=== PATIENT | female | born 1955 | race Caucasian/White ===

== ENCOUNTER 2017-02-06 15:42 | Emergency (ER) | payer MEDICAID ==
[~2017-02-06] VITALS: Ht 160 cm; Wt 70.0 kg
[2017-02-06 16:00] VITALS: Ht 160 cm; Wt 70.0 kg
[2017-02-06] MEDS ORDERED: SOD CHLORIDE 0.9% 1,000 ML IV STA (21:02)
[2017-02-06] MEDS ORDERED: ONDANSETRON 4 MG INJ IV STA (21:02)
[2017-02-06] MEDS ORDERED: morphine 4 MG/ML VIAL IV STA (21:02)
[2017-02-06 21:09] LABS: ADD SCAN DIFF NO
[2017-02-06 21:12] LABS: BASOPHILS % 0.6 % (0.0-2.0); EOSINOPHILS # 0.1 10^3/ul (0.0-0.5); EOSINOPHILS % 2.9 % (0.0-7.0); HEMATOCRIT 39.3 % (37.0-47.0); HEMOGLOBIN 13.4 g/dl (12.0-16.0); LYMPHOCYTES # 1.6 10^3/ul (0.8-2.9); LYMPHOCYTES % 33.5 % (15.0-51.0); MEAN CORPUSCULAR HEMOGLOBIN 26.4 pg (29.0-33.0); MEAN CORPUSCULAR HGB CONC 34.1 g/dl (32.0-37.0); MEAN CORPUSCULAR VOLUME 77.4 fl (82.0-101.0); MONOCYTE # 0.4 10^3/ul (0.3-0.9); MONOCYTES % 7.7 % (0.0-11.0); NEUTROPHIL # 2.6 10^3/ul (1.6-7.5); NEUTROPHILS % 54.7 % (39.0-77.0); PLATELET COUNT 207 10^3/UL (140-415); RED BLOOD COUNT 5.08 10^6/ul (4.20-5.40); RED CELL DISTRIBUTION WIDTH 15.6 % (11.5-14.5); WHITE BLOOD COUNT 4.8 10^3/ul (4.8-10.8)
[2017-02-06 21:14] LABS: ALBUMIN 4.7 g/dl (3.3-4.9)
[2017-02-06 21:15] LABS: POTASSIUM 3.6 mmol/L (3.5-5.1)
[2017-02-06 21:17] LABS: ALBUMIN/GLOBULIN RATIO 0.94; BILIRUBIN,INDIRECT 0.6 mg/dl (0-1.1); BILIRUBIN,TOTAL 0.6 mg/dl (0.2-1.3); CREATININE 0.51 mg/dl (0.44-1.00); TOTAL PROTEIN 9.7 g/dl (6.1-8.1)
[2017-02-06] MEDS ORDERED: METF1000 PO (21:49)
[2017-02-06] MEDS ORDERED: NPH SQ (21:51)
--- NOTE | 2017-02-06 21:51 | RADRPT ---
PROCEDURE: US gallbladder . CLINICAL INDICATION: Abdominal pain. TECHNIQUE: Multiple real-time images were acquired of the patient's abdomen utilizing a high resol ution transducer. COMPARISON: None FINDINGS: No gallstones are identified within the gallbladder. There is no pericholecystic fluid or gallbladder wall thickening. Gallbladder wall measures 2 mm. The common bile duct measures 4 mm in maximal dimension. No free fluid is identified. Enlarged liver measures 196 mm. Increased echogenicity with the liver s uggests a degree of fatty infiltration. Right kidney measures 101 mm, and otherwise there is no paris dent renal mass, hydronephrosis or retained calculus. IMPRESSION: 1. Fatty infiltration of enlarged liver. 2. Otherwise, no acute process in the abdomen. RPTAT: UU Physician Raul Date Time Electronically viewed and signed by Physician Raul on 02/06/2017 21:51 RS/
[2017-02-06] MEDS ORDERED: IOHEXOL 300MG/ML 150 ML BTL ONE (22:24)
[2017-02-06] MEDS ORDERED: SOD CHLORIDE 0.9% 100 ML ONE (22:24)
[2017-02-06 22:30] VITALS: BP 147/67; PULSE 61; RESP 18
--- NOTE | 2017-02-06 23:14 | RADRPT ---
PROCEDURE: CT abdomen and pelvis with contrast CLINICAL INDICATION: Abdominal Pain TECHNIQUE: Continues axial CT images were obtained from the lower chest through the pubic symphysi s. Coronal and sagittal constructions were performed. Examination was performed after administrati on of 100 mL of Omnipaque-300 intravenous contrast. The calculated radiation dose measures 991 mGy centimeters. The CTDI measures 18 mGy. COMPARISON: None available FINDINGS: Limited images through the lung bases display mild dependent atelectasis. Abdomen: The liver appears normal in size and configuration. There are gallstones in the gallbladder.. There is no intrahepatic or extrahepatic biliary dilatation. The spleen is normal in size. The pancreas and adrenal glands appear unremarkable. The kidneys are normal in configuration. There is a left lower pole 8 mm probable renal cysts, and s cattered additional bilateral too small to characterize hypodensities. No renal calculus or hydrone phrosis is seen. There is scattered colonic diverticulosis, without visualized diverticulitis.. The appendix appears within normal limits. There is no retroperitoneal adenopathy or ascites. Pelvis: The urinary bladder appears unremarkable. Pelvic organs appear within normal limits. There is no a bnormal pelvic mass or adenopathy. There is no pelvic free fluid. Osseous structures of the abdomen and pelvis appear within normal limits. IMPRESSION: 1. Mild dependent lung atelectasis. 2. Gallstones in the gallbladder. 3. Scattered colonic diverticulosis, without visualized diverticulitis. 4. Scattered renal too small to characterize hypodensities, and probable left lower pole 8 mm renal cyst. RPTAT: HBST .Ovidio Correa MD, MD Date Time Electronically viewed and signed by .Ovidio Correa MD, MD on 02/06/2017 23:14 .T/
--- NOTE | 2017-02-07 00:06 | ERD ---
ER Documentation Chief Complaint Date/Time DATE: 02/06/17 TIME: 21:00 Chief Complaint RUQ PAIN; ON AND OFF FEVEER X 3 WEEKS HPI 61-year-old female with history of diabetes mellitus, hypertension and hepatitis C referred to the ED by her primary care physician for evaluation of a 3 week history of right upper quadrant pain. Patient states she has had approximately 1 month history of intermittent, sharp and crampy, nonradiating right upper quadrant pain with nausea but no vomiting or constipation. Intermittent, watery, nonbloody, nonmucoid diarrhea. No hematemesis or hematochezia. Denies chest pain or palpitations. No shortness of breath or cough. No dysuria, polyuria, hematuria or flank pain. No relieving or exacerbating factors. No fevers or chills. ROS All systems reviewed and are negative except as per history of present illness. Medications Home Meds Active Scripts Tramadol HCl (Tramadol HCl) 50 Mg Tablet, 50 MG PO Q6 Y for PAIN, #12 TAB Prov:ALFREDA LITTLE MD 02/07/17 Reported Medications Insulin Human Nph (Novolin-N) 100 Units/Ml Susp, 0 SQ BID TAKE 38 UNITS QAM AND 25 UNITS QHS 02/06/17 Metformin Hcl* (Metformin Hcl*) 1,000 Mg Tablet, 1000 MG PO WITH BREAKFAST DINNE , #60 TAB 02/06/17 Allergies Allergies: Coded Allergies: No Known Allergy (Unverified , 02/06/17) PMhx/Soc Reviewed in chart. As per HPI. History of Surgery: Yes (hysterectomy, hernia repair.) Anesthesia Reaction: No Hx Neurological Disorder: No Hx Respiratory Disorders: No Hx Cardiac Disorders: No Hx Psychiatric Problems: No Hx Miscellaneous Medical Probl: Yes (DM, HTN) Hx Alcohol Use: No Hx Substance Use: No Hx Tobacco Use: No Smoking Status: Current every day smoker FmHx No stroke or cancer Physical Exam Vitals Vital Signs Date Time Temp Pulse Resp B/P Pulse Ox O2 Delivery O2 Flow Rate FiO2 02/06/17 22:30 61 18 147/67 97 Room Air 02/06/17 16:00 98.4 70 19 150/100 100 Physical Exam Const: Alert, mild distress due to pain. Head: Atraumatic Eyes: Normal Conjunctiva ENT: Normal External Ears, Nose and Mouth. Neck: Full range of motion. Nontender Resp: Clear to auscultation bilaterally Cardio: Regular rate and rhythm, no murmurs Abd: Soft, mild to moderate right upper quadrant tenderness. No rebound or guarding. No right or left lower quadrant tenderness. No masses or abnormal pulsations. Skin: No petechiae or rashes Back: No midline or flank tenderness Ext: No cyanosis, or edema Neur: Awake and alert. No focal deficit observed. Psych: Normal Mood and Affect Result Diagram: 02/06/17205402/06/172054 Results 24 hrs Laboratory Tests Test 02/06/17 20:55 White Blood Count 4.810^3/ul Red Blood Count 5.0810^6/ul Hemoglobin 13.4g/dl Hematocrit 39.3% Mean Corpuscular Volume 77.4fl Mean Corpuscular Hemoglobin 26.4pg Mean Corpuscular Hemoglobin Concent 34.1g/dl Red Cell Distribution Width 15.6% Platelet Count 30201^3/UL Mean Platelet Volume 11.0fl Neutrophils % 54.7% Lymphocytes % 33.5% Monocytes % 7.7% Eosinophils % 2.9% Basophils % 0.6% Nucleated Red Blood Cells % 0.0/100WBC Neutrophils # 2.610^3/ul Lymphocytes # 1.610^3/ul Monocytes # 0.410^3/ul Eosinophils # 0.110^3/ul Basophils # 0.010^3/ul Nucleated Red Blood Cells # 0.010^3/ul Sodium Level 148mmol/L Potassium Level 3.6mmol/L Chloride Level 99mmol/L Carbon Dioxide Level 31mmol/L Anion Gap 22 Blood Urea Nitrogen 8mg/dl Creatinine 0.51mg/dl Glucose Level 94mg/dl Calcium Level 10.0mg/dl Total Bilirubin 0.6mg/dl Direct Bilirubin 0.00mg/dl Indirect Bilirubin 0.6mg/dl Aspartate Amino Transf (AST/SGOT) 400IU/L Alanine Aminotransferase (ALT/SGPT) 395IU/L Alkaline Phosphatase 84IU/L Total Protein 9.7g/dl Albumin 4.7g/dl Globulin 5.00g/dl Albumin/Globulin Ratio 0.94 Lipase 224U/L Current Medications Medications (Trade) Dose Ordered Sig/Cecy Route PRN Reason Start Time Stop Time Status Last Admin Dose Admin Sodium Chloride (NS) 1,000 ml @ 1,000 mls/hr Q1H STAT IV 02/06/17 21:02 02/06/17 22:01 DC 02/06/17 21:21 Morphine Sulfate (morphine) 4 mg ONCE STAT IV 02/06/17 21:02 02/06/17 21:05 DC 02/06/17 21:26 Ondansetron HCl (Zofran Inj) 4 mg ONCE STAT IV 02/06/17 21:02 02/06/17 21:05 DC 02/06/17 21:26 IV Flush 10 ml 10 ml STK-MED ONCE .ROUTE 02/06/17 22:24 02/06/17 22:25 DC 02/06/17 22:41 Sodium Chloride (NS) 100 ml @ ud STK-MED ONCE .ROUTE 02/06/17 22:24 02/06/17 22:25 DC 02/06/17 22:41 Iohexol (Omnipaque 300mg/ ml) 150 ml STK-MED ONCE .ROUTE 02/06/17 22:24 02/06/17 22:25 DC 02/06/17 22:41 PROCEDURE: US gallbladder . CLINICAL INDICATION: Abdominal pain. TECHNIQUE: Multiple real-time images were acquired of the patient's abdomen utilizing a high resolution transducer. COMPARISON: None FINDINGS: No gallstones are identified within the gallbladder. There is no pericholecystic fluid or gallbladder wall thickening. Gallbladder wall measures 2 mm. The common bile duct measures 4 mm in maximal dimension. No free fluid is identified. Enlarged liver measures 196 mm. Increased echogenicity with the liver suggests a degree of fatty infiltration. Right kidney measures 101 mm, and otherwise there is no evident renal mass, hydronephrosis or retained calculus. IMPRESSION: 1. Fatty infiltration of enlarged liver. 2. Otherwise, no acute process in the abdomen. RPTAT: UU Physician Raul Date Time Electronically viewed and signed by Physician Raul on 02/06/2017 21:51 RS/ PROCEDURE: CT abdomen and pelvis with contrast CLINICAL INDICATION: Abdominal Pain TECHNIQUE: Continues axial CT images were obtained from the lower chest through the pubic symphysis. Coronal and sagittal constructions were performed. Examination was performed after administration of 100 mL of Omnipaque-300 intravenous contrast. The calculated radiation dose measures 991 mGy centimeters. The CTDI measures 18 mGy. COMPARISON: None available FINDINGS: Limited images through the lung bases display mild dependent atelectasis. Abdomen: The liver appears normal in size and configuration. There are gallstones in the gallbladder.. There is no intrahepatic or extrahepatic biliary dilatation. The spleen is normal in size. The pancreas and adrenal glands appear unremarkable. The kidneys are normal in configuration. There is a left lower pole 8 mm probable renal cysts, and scattered additional bilateral too small to characterize hypodensities. No renal calculus or hydronephrosis is seen. There is scattered colonic diverticulosis, without visualized diverticulitis.. The appendix appears within normal limits. There is no retroperitoneal adenopathy or ascites. Pelvis: The urinary bladder appears unremarkable. Pelvic organs appear within normal limits. There is no abnormal pelvic mass or adenopathy. There is no pelvic free fluid. Osseous structures of the abdomen and pelvis appear within normal limits. IMPRESSION: 1. Mild dependent lung atelectasis. 2. Gallstones in the gallbladder. 3. Scattered colonic diverticulosis, without visualized diverticulitis. 4. Scattered renal too small to characterize hypodensities, and probable left lower pole 8 mm renal cyst. RPTAT: HBST .Ovidio Correa MD, MD Date Time Electronically viewed and signed by .Ovidio Correa MD, MD on 02/06/2017 23:14 .T/ Procedures/MDM DOCUMENTS REVIEWED: ED nurse, clinic note. ED COURSE: Normal saline 1 L. Morphine 4mg/Zofran 4mg REEXAMINATION/REEVALUATION: Time:23:50. Doing well. Pain resolved. Abdomen soft nontender. MEDICAL DECISION MAKIN-year-old female with history of diabetes mellitus, hypertension and hepatitis C referred to the ED by her primary care physician for evaluation of a 3 week history of right upper quadrant pain. Ultrasound is negative for cholelithiasis or cholecystitis but CT was positive for cholelithiasis. Possible biliary colic. No evidence of other intra-abdominal process including appendicitis, diverticulitis, bowel obstruction, mesenteric ischemia or ureterolithiasis. Transaminitis but no hyperbilirubinemia. Doubt cholangitis. No skin changes or signs of herpes zoster infection. Abdomen is soft without rebound, guarding or signs of peritonitis. No pancreatitis. Pain resolved with intravenous hydration, analgesics and antiemetics. Counseled patient regarding diagnostic workup, diagnosis and need for followup. Understands to return to ED if symptoms recur, worsen or any other concerns. F/ U with PMD tomorrow. Departure Diagnosis: Primary Impression: Right upper quadrant abdominal pain Additional Impressions: Transaminitis Diabetes mellitus type 2 in obese Abdominal pain of unknown etiology Condition: Stable ALFREDA LITTLE MD Feb 07, 2017 00:06
[2017-02-07] MEDS ORDERED: TRAM50TA2 PO (00:28)
== END 2017-02-07 00:39 | disposition home or self-care (01) ==
LOC: E/R 15:42
DX: R10.11 Right upper quadrant pain (principal); R74.0 Nonspecific elevation of levels of transaminase and lactic acid dehydrogenase [LDH]; E11.9 Type 2 diabetes mellitus without complications; F17.210 Nicotine dependence, cigarettes, uncomplicated; R11.0 Nausea; I10 Essential (primary) hypertension; Z79.4 Long term (current) use of insulin; Z79.84 Long term (current) use of oral hypoglycemic drugs
CPT/HCPCS: 36415; 74177; 76705; 80053; 83690; 85025; 96361; 96374; 96375; J2270; J2405; J7030; Q9967; Z7502; Z7610

== ENCOUNTER 2017-08-21 13:42 | Day surgery (SDC) | payer MEDICAID, OTHER ==
[~2017-08-21] VITALS: Ht 160 cm; Wt 78.1 kg
[~2017-08-21 13:42] MED LIST: METF1000 PO; NPH SQ; TRAM50TA2 PO
[2017-08-21 14:30] VITALS: Ht 160 cm; Wt 78.1 kg
[2017-08-21] MEDS ORDERED: NITR25OR2 PO (14:59)
[2017-08-21] MEDS ORDERED: IMO2 PO (14:59)
[2017-08-21] MEDS ORDERED: OMEP20CA16 PO (14:59)
[2017-08-21] MEDS ORDERED: LIRA0.6P SQ (14:59)
[2017-08-21] MEDS ORDERED: CALC-143 PO (14:59)
--- NOTE | 2017-08-21 15:50 | OPPN ---
Date/Time of Note Date/Time of Note DATE: 08/21/17 TIME: 15:48 Operative Report Preoperative Diagnosis Abdominal pain Chronic diarrhea Postoperative Diagnosis Hiatal hernia Gastroesophageal reflux disease Gastritis Operation/Procedure Performed Esophagogastroduodenoscopy and biopsy Colonoscopy and biopsy Surgeon see signature line office assistant receptionist None Anesthesia: moderate sedation Estimated blood loss: none Transfusion Required none Specimen Gastric biopsy Small bowel biopsy Random colon biopsy Grafts/Implants none Complications none LISA STOCK MD Aug 21, 2017 15:50
[2017-08-21] MEDS ORDERED: MIDAZOLAM 1 MG/ML 2 ML INJ ONE ×3 (16:14)
[2017-08-21] MEDS ORDERED: FENTAnyl 50 MCG/ML VIAL ONE (16:14)
--- NOTE | 2017-08-21 18:24 | GILP ---
DATE OF PROCEDURE: 08/21/2017 PROCEDURE PERFORMED: 1. Esophagogastroduodenoscopy and biopsy. 2. Colonoscopy and biopsy. SURGEON: Rupa Garcia MD PREOPERATIVE DIAGNOSIS: 1. Abdominal pain. 2. Chronic diarrhea. POSTOPERATIVE DIAGNOSES: 1. Hiatal hernia. 2. Gastroesophageal reflux disease. 3. Gastritis with erosions. 4. Gastric mucosal biopsies were taken for Helicobacter pylori test. 5. Small bowel biopsies were taken to rule out celiac disease. 6. Colonoscopy all the way to the cecum. 7. Diverticulosis of the right colon. 8. Internal hemorrhoids. 9. Random biopsies were taken to rule out microscopic colitis. INDICATION: Ms. Jyoti Keen is a 62-year-old female patient who had upper abdominal pain and chronic heartburn not responding to therapy. She also had chronic diarrhea. The patient was scheduled for endoscopy and colonoscopy for further evaluation. The procedures and possible complications were well explained to the patient. The patient understood and consented to the procedure. DESCRIPTION OF PROCEDURE: Under influence of fentanyl and Versed, the gastroscope was carefully introduced into the esophagus. Under direct vision, it was advanced to the stomach, into the pylorus, into the duodenal bulb, and descending duodenum. Findings: Esophagus: Patient had hiatal hernia and gastroesophageal reflux disease. Stomach: She had gastritis with erosions. Gastric mucosal biopsies were taken for H. pylori test. Duodenum was normal. Small bowel biopsies were taken to rule out celiac disease. The colonoscope was carefully introduced in the rectum. Under direct vision, it was advanced all the way to the cecum. Findings: Patient had mild diverticulosis of the right colon. The colonic mucosa was normal. Random biopsies were taken to rule out microscopic colitis. Patient was noted to have internal hemorrhoids. She tolerated the procedures very well and there was no complication from the procedures. At the end of procedure, she was awake with stable vital signs, and she was discharged home in the care of her family. IMPRESSION: Please see postoperative diagnoses. PLAN: 1. Continue omeprazole. 2. Add Zantac 300 mg p.o. at bedtime. 3. Bentyl 10 mg p.o. t.i.d. before meals. 4. Imodium p.r.n. for diarrhea. 5. Await histopathology reports. 6. Next screening colonoscopy in 10 years. Dictated By: MD LAUREN Bucio/panfilo/[email or web address] /Document#: [id number]
== END 2017-08-21 16:03 | disposition home or self-care (01) ==
LOC: GIL 13:42
PROVIDERS: ATTEND Internal Medicine Gastroenterology
DX: K44.9 Diaphragmatic hernia without obstruction or gangrene (principal); K21.9 Gastro-esophageal reflux disease without esophagitis; K29.70 Gastritis, unspecified, without bleeding; K64.8 Other hemorrhoids; K57.30 Diverticulosis of large intestine without perforation or abscess without bleeding
CPT/HCPCS: 43239; 45380; 82962; 87081; 88305; J2250; J3010; Z7610

== ENCOUNTER 2017-09-10 13:07 | Inpatient (IN) | payer OTHER ==
[~2017-09-10] VITALS: Ht 165.1 cm; Wt 78.0 kg
[~2017-09-10 13:07] MED LIST changes: +CALC-143 PO; +IMO2 PO; +LIRA0.6P SQ; -METF1000 PO; +NITR25OR2 PO; +OMEP20CA16 PO
[2017-09-10 13:12] VITALS: Ht 165.1 cm; Wt 78.0 kg
--- NOTE | 2017-09-10 17:20 | ERD ---
ER Documentation Chief Complaint Chief Complaint CP X 5DAYS SENT BY [facility]I [facility]LE[facility] The patient is a 62-year-old female, presenting to the ER from a mental health clinic because she has had left-sided chest pain radiating down to the left intermittently for the last 5 days. She was given aspirin 325 mg at the mental health clinic before transfer. The pain is worse with movement, she denies similar symptoms previously, denies chest pain with exertion/vomiting// diaphoresis, dyspnea, abdominal pain, vomiting, dysuria, diarrhea. She does not smoke nor drink Past medical history: Diabetes mellitus, hepatitis C, HIV, chronic diarrhea, GERD Past surgical history: Hysterectomy, umbilical herniorrhaphy ROS All systems reviewed and are negative except as per history of present illness. Medications Home Meds Active Scripts Tramadol HCl (Tramadol HCl) 50 Mg Tablet, 50 MG PO Q6 Y for PAIN, #12 TAB Prov:ALFREDA LITTLE MD 02/07/17 Reported Medications Omeprazole* (Omeprazole*) 20 Mg Capsule.dr, 20 MG PO DAILY, #30 CAP 08/21/17 Liraglutide (Victoza 2-Janes) 0.6 Mg/0.1 Ml Pen.injctr, 0.6 MG SQ DAILY, SYR 08/21/17 Loperamide Hcl* (Loperamide Hcl*) 2 Mg Cap, 2 MG PO, CAP 08/21/17 Nitrofurantoin* (Furadantin* Susp) 25 Mg/5 Ml Oral.susp, 100 MG PO BID, ML 08/21/17 Calcium Citrate/Vitamin D (Citracal-Vitamin D 200 MG-250) 1 Each Tablet, 1 EACH PO BID, TAB 08/21/17 Insulin Human Nph (Novolin-N) 100 Units/Ml Susp, 0 SQ BID TAKE 38 UNITS QAM AND 25 UNITS QHS 02/06/17 Allergies Allergies: Coded Allergies: No Known Allergy (Unverified , 02/06/17) PMhx/Soc History of Surgery: Yes (HYSTERECTOMY, UMBILICAL HERNIA) Anesthesia Reaction: No Hx Neurological Disorder: No Hx Respiratory Disorders: No Hx Cardiac Disorders: No Hx Psychiatric Problems: No Hx Miscellaneous Medical Probl: No (HEP C, HIV, TYPE 1 DM) Hx Alcohol Use: No Hx Substance Use: No Hx Tobacco Use: No Physical Exam Vitals Vital Signs Date Time Temp Pulse Resp B/P Pulse Ox O2 Delivery O2 Flow Rate FiO2 09/10/17 13:12 97.1 66 18 136/75 99 Physical Exam Const: No acute distress. Head: Atraumatic. Eyes: Normal Conjunctiva. ENT: Normal External Ears, Nose and Mouth. Neck: Full range of motion. No meningismus. Resp: Clear to auscultation bilaterally. Cardio: Regular rate and rhythm. Abd: Soft, non distended, normal bowel sounds, non tender. Skin: No petechiae or rashes. Back: No midline or flank tenderness. Ext: No cyanosis, or edema. Neur: Awake and alert. No focal deficit Psych: Normal Mood and Affect. Result Diagram: 09/10/17 1750 09/10/171749 Results 24 hrs Laboratory Tests Test 09/10/17 17:50 White Blood Count 5.710^3/ul Red Blood Count 4.5810^6/ul Hemoglobin 13.1g/dl Hematocrit 38.1% Mean Corpuscular Volume 83.2fl Mean Corpuscular Hemoglobin 28.6pg Mean Corpuscular Hemoglobin Concent 34.4g/dl Red Cell Distribution Width 14.7% Platelet Count 55516^3/UL Mean Platelet Volume 11.0fl Neutrophils % 50.8% Lymphocytes % 40.2% Monocytes % 5.3% Eosinophils % 2.8% Basophils % 0.5% Nucleated Red Blood Cells % 0.0/100WBC Neutrophils # 2.910^3/ul Lymphocytes # 2.310^3/ul Monocytes # 0.310^3/ul Eosinophils # 0.210^3/ul Basophils # 0.010^3/ul Nucleated Red Blood Cells # 0.010^3/ul Sodium Level 144mmol/L Potassium Level 4.0mmol/L Chloride Level 103mmol/L Carbon Dioxide Level 28mmol/L Anion Gap 17 Blood Urea Nitrogen 9mg/dl Creatinine 0.65mg/dl Glucose Level 94mg/dl Calcium Level 9.6mg/dl Creatine Kinase 53IU/L Creatine Kinase Index 0.5 Creatinine Kinase MB (Mass) 0.28ng/ml Troponin I < 0.012ng/ml Current Medications Medications (Trade) Dose Ordered Sig/Cecy Route PRN Reason Start Time Stop Time Status Last Admin Dose Admin Nitroglycerin (Nitroglycerin 2% Oint) 1 inch ONCE ONCE TD 09/10/17 18:00 10/23/17 18:01 DC 09/10/17 18:03 Procedures/MDM [place] [id number] Radiology Main Line: [phone] DIAGNOSTIC IMAGING REPORT Patient: DEO SILVA : 1955 Age: 62 Sex: F MR #: [id number] DOS: 09/10/17 1707 Ordering MD: TRIPP CORADO MD Location: E/R Room/Bed: PROCEDURE: XR Chest. CLINICAL INDICATION: Chest pain TECHNIQUE: Single frontal view of the chest. COMPARISON: None. FINDINGS: The cardiomediastinal silhouette is within normal limits. The lungs are clear. No signs of pleural fluid or pneumothorax are seen. The osseous structures and soft tissues are unremarkable. IMPRESSION: No evidence for active cardiopulmonary disease. RPTAT: UU Physician Raul Date Time Electronically viewed and signed by Physician Raul on 09/10/2017 18:55 RS/ CC: TRIPP CORADO MD EKG: Read by emergency physician Rate/Rhythm: Normal Sinus Rhythm 60 beats/min QRS, ST, T-waves: No ST elevation, no T inversion Impression: Normal EKG MEDICAL MAKING DECISION: The patient is a 62-year-old female, presenting to the ER because of acute chest pain of unclear etiology, concerning for acute ACS. She was treated with aspirin 325 mg p.o. at the clinic, she was treated with nitroglycerin 1 inch to the chest wall with good response The differential diagnoses considered include but are not limited to acute coronary syndrome, acute myocardial infarction, pericarditis, pulmonary embolism , aortic dissection, pneumonia, pleural effusion, pneumothorax, GERD, chest wall pain. Departure Diagnosis: Primary Impression: Chest pain Condition: Stable Comments I discussed the findings with the patient. I discussed the patient with the on- call hospitalist Jaziel 7 PM. who was made aware of the lab, the treatment, the patient condition. The patient is admitted to telemetry The patient's blood pressure was elevated (>120/80) but appears stable without evidence of hypertension emergency or urgency. The patient was counseled about the risks of hypertension and urged to pursue outpatient monitoring and therapy within a week with their primary care physician. TRIPP CORADO MD Sep 10, 2017 17:20
[2017-09-10] MEDS ORDERED: NITROGLYCERIN 2% 1 GM OINT PKT TD ONE (18:00)
[2017-09-10 18:10] LABS: BASOPHILS % 0.5 % (0.0-2.0); EOSINOPHILS # 0.2 10^3/ul (0.0-0.5); EOSINOPHILS % 2.8 % (0.0-7.0); HEMATOCRIT 38.1 % (37.0-47.0); HEMOGLOBIN 13.1 g/dl (12.0-16.0); LYMPHOCYTES # 2.3 10^3/ul (0.8-2.9); LYMPHOCYTES % 40.2 % (15.0-51.0); MEAN CORPUSCULAR HEMOGLOBIN 28.6 pg (29.0-33.0); MEAN CORPUSCULAR HGB CONC 34.4 g/dl (32.0-37.0); MEAN CORPUSCULAR VOLUME 83.2 fl (82.0-101.0); MONOCYTE # 0.3 10^3/ul (0.3-0.9); MONOCYTES % 5.3 % (0.0-11.0); NEUTROPHIL # 2.9 10^3/ul (1.6-7.5); NEUTROPHILS % 50.8 % (39.0-77.0); PLATELET COUNT 192 10^3/UL (140-415); RED BLOOD COUNT 4.58 10^6/ul (4.20-5.40); RED CELL DISTRIBUTION WIDTH 14.7 % (11.5-14.5); WHITE BLOOD COUNT 5.7 10^3/ul (4.8-10.8)
[2017-09-10 18:26] LABS: ANION GAP 17 (8-16); BLOOD UREA NITROGEN 9 mg/dl (7-20); CALCIUM 9.6 mg/dl (8.4-10.2); CARBON DIOXIDE 28 mmol/L (21-31); CHLORIDE 103 mmol/L (97-110); CREATINE KINASE 53 IU/L (23-200); CREATININE 0.65 mg/dl (0.44-1.00); GLUCOSE 94 mg/dl (70-220); SODIUM 144 mmol/L (135-144)
[2017-09-10 18:38] LABS: CK-MB 0.28 ng/ml (0.0-2.4)
[2017-09-10 18:40] LABS: TROPONIN-I < 0.012 ng/ml (0.00-0.12)
--- NOTE | 2017-09-10 18:56 | RADRPT ---
PROCEDURE: XR Chest. CLINICAL INDICATION: Chest pain TECHNIQUE: Single frontal view of the chest. COMPARISON: None. FINDINGS: The cardiomediastinal silhouette is within normal limits. The lungs are clear. No signs of pleural f luid or pneumothorax are seen. The osseous structures and soft tissues are unremarkable. IMPRESSION: No evidence for active cardiopulmonary disease. RPTAT: UU Physician Raul Date Time Electronically viewed and signed by Physician Raul on 09/10/2017 18:55 RS/
[2017-09-10] MEDS ORDERED: NITROGLYCERIN (SL) 0.4 MG TAB SL PRN (23:00)
[2017-09-10] MEDS ORDERED: morphine 2 MG INJ IV PRN (23:00)
[2017-09-10] MEDS ORDERED: NACL 0.9% 3 ML SYG IV SCH (23:00)
[2017-09-10] MEDS ORDERED: ONDANSETRON 4 MG INJ IV PRN (23:00)
[2017-09-10] MEDS ORDERED: ALBUTEROL/IPRATROPIUM (NEB) 3 ML AMP HHN PRN (23:00)
[2017-09-10] MEDS ORDERED: LORAZEPAM 0.5 MG TAB PO PRN (23:00)
[2017-09-10] MEDS ORDERED: ACETAMINOPHEN 325 MG TAB PO PRN (23:00)
[2017-09-10 23:14] VITALS: BP 112/71; RESP 20
[2017-09-10] MEDS ORDERED: GLUCAGON 1 MG INJ IM PRN (23:30)
[2017-09-10] MEDS ORDERED: DEXTROSE 50% 50 ML SYRINGE IV PRN ×2 (23:30)
[2017-09-10] MEDS ORDERED: GLUCOSE GEL 15 GRAM TUBE PO PRN ×2 (23:30)
[2017-09-10] MEDS ORDERED: GLUCOSE GEL 15 GRAM TUBE BUCCAL PRN (23:30)
[2017-09-11] VITALS (11 sets, daily range): BP systolic 114–129; BP diastolic 67–75; PULSE 62–75; RESP 17–20
[2017-09-11] MEDS: ACCU-CHEK XX SCH (02:00)
[2017-09-11] MEDS: PANTOPRAZOLE (EC) 40 MG TAB PO SCH (06:30)
--- NOTE | 2017-09-11 07:07 | HP ---
Date/Time of Note Date/Time of Note DATE: 09/11/17 TIME: 06:58 Assessment/Plan VTE Prophylaxis VTE Prophylaxis Intervention: heparin Lines/Catheters IV Catheter Type (from [facility]): [place] Urinary Cath still in place: No Assessment/Plan Assessment/Plan ASSESSMENT 62-year-old female with a history of insulin-dependent diabetes, hep C, HIV, chronic diarrhea, gastritis/GERD who was brought to the ER from psych facility for chest pain, likely stress related PLAN -Chest pain likely stress related, however need to rule out ACS -Continue telemetry monitoring -Aspirin, beta-gagandeep, with as needed nitro morphine. Continue supplemental oxygen -Obtain 2D echo -cardiology consult as needed -Check A1c, fasting lipid, TSH -Insulin while in-house for diabetes HPI/ROS Admit Date/Time Admit Date/Time Sep 10, 2017 at 19:43 Hx of Present Illness This is a 62-year-old female with a history of insulin-dependent diabetes, hepatitis C, HIV, chronic diarrhea, gastritis who was brought to the emergency department from a mental health clinic for chest pain. Pain started about a week ago and is mainly left-sided, with radiation to left arm. Denied shortness of breath, diaphoresis, nausea/vomiting. When presented to the ER, vitals were stable. EKG with normal sinus rhythm with no ST-T wave abnormalities. Troponin 2 negative. Basic labs within acceptable range. Chest x-ray with no active cardiopulmonary disease. . PMH/Family/Social Social History Smoking Status: Never smoker Exam/Review of Systems Vital Signs Vitals Vital Signs Date Time Temp Pulse Resp B/P Pulse Ox O2 Delivery O2 Flow Rate FiO2 09/11/17 04:10 64 09/11/17 04:02 98.1 20 114/68 98 Intake and Output 09/10/17 09/10/17 09/11/17 14:59 22:59 06:59 Intake Total 300 ml Balance 300 ml Exam Constitutional: other (No acute distress) Head: atraumatic, normocephalic Eyes: EOMI, PERRL Respiratory: clear to auscultation, normal air movement Cardiovascular: nl pulses, regular rate and rhythm Gastrointestinal: non-tender, soft Extremities: normal pulses Labs Result Diagram: 09/10/17174909/10/171749 Medications Medications Current Medications Lorazepam (Ativan) 0.5 mg Q8H PRN PO ANXIETY; Start 09/10/17 at 23:00 Ondansetron HCl (Zofran Inj) 4 mg Q6H PRN IV NAUSEA AND/OR VOMITING; Start at 23:00 Aspirin (Aspirin) 81 mg DAILY PO ; Start 09/11/17 at 09:00 Nitroglycerin (Nitroglycerin (Sl Tab) 0.4 Mg) 1 tab Q5M PRN SL CHEST PAIN; Start 09/10/17 at 23:00 Acetaminophen (Tylenol Tab) 650 mg Q6H PRN PO PAIN LEVEL 1-3 OR FEVER; Start 09/10/17 at 23:00 Morphine Sulfate (morphine) 2 mg Q4H PRN IV PAIN LEVEL 7-10; Start 09/10/17 at 23:00 Enoxaparin Sodium (Lovenox) 40 mg DAILY SC ; Start 09/11/17 at 09:00 Diagnostic Test (Pha) (Accu-Chek) 1 ea 02 XX ; Start 09/11/17 at 02:00 Insulin Glargine (Lantus) 12 unit DAILY@08 SC ; Start 09/11/17 at 08:00 Pantoprazole (Protonix Tab) 40 mg DAILY@06 PO Last administered on 09/11/17t 06:30; Admin Dose 40 MG; Start 09/11/17 at 06:00 Miscellaneous Information 1 ea NOTE XX ; Start 09/10/17 at 23:30 Glucose (Glutose) 15 gm Q15M PRN PO DECREASED GLUCOSE; Start 09/10/17 at 23:30 Glucose (Glutose) 22.5 gm Q15M PRN PO DECREASED GLUCOSE; Start 09/10/17 at 23: 30 Dextrose (D50w Syringe) 25 ml Q15M PRN IV DECREASED GLUCOSE; Start 09/10/17 at 23:30 Dextrose (D50w Syringe) 50 ml Q15M PRN IV DECREASED GLUCOSE; Start 09/10/17 at 23:30 Glucagon (Glucagen) 1 mg Q15M PRN IM DECREASED GLUCOSE; Start 09/10/17 at 23: 30 Glucose (Glutose) 15 gm Q15M PRN BUCCAL DECREASED GLUCOSE; Start 09/10/17 at 23:30 LUIS CLARK MD Sep 11, 2017 07:06
[2017-09-11] MEDS: INSULIN ASPART [NOVOLOG] 3 ML PEN SC SCH ×4 (07:59→20:49)
[2017-09-11] MEDS: ASPIRIN 81 MG TAB PO SCH (08:05)
[2017-09-11] MEDS: INSULIN GLARGINE [LANtus] 3 ML PEN SC SCH (08:07)
[2017-09-11 08:26] LABS: WHITE BLOOD COUNT 5.2 10^3/ul (4.8-10.8)
[2017-09-11 08:27] LABS: BASOPHILS % 0.6 % (0.0-2.0); EOSINOPHILS # 0.1 10^3/ul (0.0-0.5); EOSINOPHILS % 2.3 % (0.0-7.0); HEMATOCRIT 34.1 % (37.0-47.0); HEMOGLOBIN 11.6 g/dl (12.0-16.0); LYMPHOCYTES # 1.9 10^3/ul (0.8-2.9); LYMPHOCYTES % 36.5 % (15.0-51.0); MEAN CORPUSCULAR HEMOGLOBIN 27.8 pg (29.0-33.0); MEAN CORPUSCULAR VOLUME 81.6 fl (82.0-101.0); MEAN PLATELET VOLUME 10.4 fl (7.4-10.4); MONOCYTE # 0.4 10^3/ul (0.3-0.9); MONOCYTES % 7.3 % (0.0-11.0); NEUTROPHIL # 2.8 10^3/ul (1.6-7.5); NEUTROPHILS % 53.1 % (39.0-77.0); PLATELET COUNT 173 10^3/UL (140-415); RED BLOOD COUNT 4.18 10^6/ul (4.20-5.40); RED CELL DISTRIBUTION WIDTH 14.8 % (11.5-14.5)
[2017-09-11 08:50] LABS: CREATINE KINASE 34 IU/L (23-200)
[2017-09-11 08:55] LABS: ALBUMIN 3.6 g/dl (3.3-4.9); ALBUMIN/GLOBULIN RATIO 0.97; BILIRUBIN,INDIRECT 0.5 mg/dl (0-1.1); BILIRUBIN,TOTAL 0.5 mg/dl (0.2-1.3); CALCIUM 9.2 mg/dl (8.4-10.2); CHOL/HDL RATIO 2.9 RATIO; CREATININE 0.67 mg/dl (0.44-1.00); MAGNESIUM 1.5 mg/dl (1.7-2.5); TOTAL PROTEIN 7.3 g/dl (6.1-8.1)
[2017-09-11] MEDS ORDERED: ENOXAPARIN 40 MG/0.4 ML SYG SC SCH (09:00)
[2017-09-11 09:01] LABS: CK-MB < 0.22 ng/ml (0.0-2.4); TROPONIN-I < 0.012 ng/ml (0.00-0.12)
[2017-09-11 09:20] LABS: THYROID STIMULATING HORMONE 1.86 MIU/L (0.465-4.680)
--- NOTE | 2017-09-11 14:24 | PN ---
Date/Time of Note Date/Time of Note DATE: 09/11/17 TIME: 14:21 Assessment/Plan VTE Prophylaxis VTE Prophylaxis Intervention: SCD's Lines/Catheters IV Catheter Type (from Nrsg): Peripheral IV Urinary Cath still in place: No Assessment/Plan Chief Complaint/Hosp Course Assessment and plan 1. Chest pain. Patient still reports having chest pain that radiates to her jaw and neck and left shoulder and arm notable on exertion and also shortness of breath associated. Troponins negative. Will get [facility] consultation. 2. Diabetes. Continue insulin regimen. Will adjust as needed. 3. Hypomagnesemia. Will replete and check level in a.m. Disposition plan: We will get [facility] [place] consultation given patient's chest pain. Replete magnesium. Will follow. Discussed plan of care with Dr. Mendez Problems: Subjective 24 Hr Interval Summary Free Text/Dictation Reports having chest pain intermittently. Radiates to her left jaw and neck as well as her left shoulder and arm. Has associated shortness of breath on exertion as well as chest pain on exertion Exam/Review of Systems Vital Signs Vitals Vital Signs Date Time Temp Pulse Resp B/P Pulse Ox O2 Delivery O2 Flow Rate FiO2 09/11/17 12:00 73 09/11/17 11:28 98.2 18 123/75 95 Intake and Output 09/10/17 09/10/17 09/11/17 14:59 22:59 06:59 Intake Total 300 ml Balance 300 ml Exam Constitutional: alert, oriented Head: normocephalic Eyes: nl conjunctiva Neck: non-tender, supple Respiratory: clear to auscultation, normal air movement Cardiovascular: regular rate and rhythm Gastrointestinal: non-tender, soft Musculoskeletal: nl extremities to inspection, nl gait and stance Extremities: normal pulses Neurological: W[employer]PECT[employer] II-XII intact, nl mental status, nl speech Results Result Diagram: 09/11/1771109/11/1712 Results 24 hrs Laboratory Tests Test 09/10/17 17:50 09/11/17 07:12 09/11/17 07:42 09/11/17 11:20 White Blood Count 5.7 5.2 Red Blood Count 4.58 4.18 L Hemoglobin 13.1 11.6 L Hematocrit 38.1 34.1 L Mean Corpuscular Volume 83.2 81.6 L Mean Corpuscular Hemoglobin 28.6 L 27.8 L Mean Corpuscular Hemoglobin Concent 34.4 34.0 Red Cell Distribution Width 14.7 H 14.8 H Platelet Count 192 173 Mean Platelet Volume 11.0 H 10.4 Neutrophils % 50.8 53.1 Lymphocytes % 40.2 36.5 Monocytes % 5.3 7.3 Eosinophils % 2.8 2.3 Basophils % 0.5 0.6 Nucleated Red Blood Cells % 0.0 0.0 Neutrophils # 2.9 2.8 Lymphocytes # 2.3 1.9 Monocytes # 0.3 0.4 Eosinophils # 0.2 0.1 Basophils # 0.0 0.0 Nucleated Red Blood Cells # 0.0 0.0 Sodium Level 144 142 Potassium Level 4.0 4.0 Chloride Level 103 106 Carbon Dioxide Level 28 28 Anion Gap 17 H 12 Blood Urea Nitrogen 9 13 Creatinine 0.65 0.67 Glucose Level 94 90 Calcium Level 9.6 9.2 Creatine Kinase 53 34 Creatine Kinase Index 0.5 0.6 Creatinine Kinase MB (Mass) 0.28 < 0.22 Troponin I < 0.012 < 0.012 Hemoglobin A1c 9.4 H Magnesium Level 1.5 L Total Bilirubin 0.5 Direct Bilirubin 0.00 Indirect Bilirubin 0.5 Aspartate Amino Transf (AST/SGOT) 65 H Alanine Aminotransferase (ALT/SGPT) 74 H Alkaline Phosphatase 57 Total Protein 7.3 Albumin 3.6 Globulin 3.70 H Albumin/Globulin Ratio 0.97 Triglycerides Level 146 Cholesterol Level 142 LDL Cholesterol, Calculated 65 HDL Cholesterol 48 Cholesterol/HDL Ratio 2.9 Thyroid Stimulating Hormone (TSH) 1.860 Bedside Glucose 97 140 Medications Medications Current Medications Lorazepam (Ativan) 0.5 mg Q8H PRN PO ANXIETY; Start 09/10/17 at 23:00 Ondansetron HCl (Zofran Inj) 4 mg Q6H PRN IV NAUSEA AND/OR VOMITING; Start at 23:00 Aspirin (Aspirin) 81 mg DAILY PO Last administered on 09/11/17t 08:05; Admin Dose 81 MG; Start 09/11/17 at 09:00 Nitroglycerin (Nitroglycerin (Sl Tab) 0.4 Mg) 1 tab Q5M PRN SL CHEST PAIN; Start 09/10/17 at 23:00 Acetaminophen (Tylenol Tab) 650 mg Q6H PRN PO PAIN LEVEL 1-3 OR FEVER; Start 09/10/17 at 23:00 Morphine Sulfate (morphine) 2 mg Q4H PRN IV PAIN LEVEL 7-10; Start 09/10/17 at 23:00 Enoxaparin Sodium (Lovenox) 40 mg DAILY SC Last administered on 09/11/17 08: 06; Admin Dose 40 MG; Start 09/11/17 at 09:00 Diagnostic Test (Pha) (Accu-Chek) 1 ea 02 XX ; Start 09/11/17 at 02:00 Insulin Glargine (Lantus) 12 unit DAILY@08 SC Last administered on 09/11/17 08:07; Admin Dose 12 UNIT; Start 09/11/17 at 08:00 Pantoprazole (Protonix Tab) 40 mg DAILY@06 PO Last administered on 09/11/17 06:30; Admin Dose 40 MG; Start 09/11/17 at 06:00 Miscellaneous Information 1 ea NOTE XX ; Start 09/10/17 at 23:30 Glucose (Glutose) 15 gm Q15M PRN PO DECREASED GLUCOSE; Start 09/10/17 at 23:30 Glucose (Glutose) 22.5 gm Q15M PRN PO DECREASED GLUCOSE; Start 09/10/17 at 23: 30 Dextrose (D50w Syringe) 25 ml Q15M PRN IV DECREASED GLUCOSE; Start 09/10/17 at 23:30 Dextrose (D50w Syringe) 50 ml Q15M PRN IV DECREASED GLUCOSE; Start 09/10/17 at 23:30 Glucagon (Glucagen) 1 mg Q15M PRN IM DECREASED GLUCOSE; Start 09/10/17 at 23: 30 Glucose (Glutose) 15 gm Q15M PRN BUCCAL DECREASED GLUCOSE; Start 09/10/17 at 23:30 JORDON LEPE Sep 11, 2017 14:24
[2017-09-11] MEDS ORDERED: MAGNESIUM SULFATE 2 GM/50 ML 50 ML IVPB ONE (14:30)
--- NOTE | 2017-09-11 16:06 | CONS ---
Date/Time of Note Date/Time of Note DATE: 09/11/17 TIME: 16:01 Assessment/Plan Assessment/Plan Chief Complaint/Hosp Course Assessment: Atypical chest pain - ruled out for myocardial infarction Insulin-dependent diabetes mellitus Hiatal hernia Reported history of hepatitis C Recommendations: -obtain transthoracic echocardiogram, no additional cardiac work up if normal -aspirin 81mg daily Problems: Consultation Date/Type/Reason Admit Date/Time Sep 10, 2017 at 19:43 Type of Consultation: Cardiology Reason for Consultation chest pain Hx of Present Illness The patient is a 62 year-old female who presented with a five day history of chest pain. She describes a left-sided chest pressure with radiation down the left arm and up to the jaw. The pain has been constant and is unrelated to exertion. EKG showed sinus rhythm without acute ischemic changes. Troponins have been negative x 3. 14 point review of systems negative other than per HPI. Past Medical History Insulin-dependent diabetes mellitus Hiatal hernia Reported history of hepatitis C Past Surgical History Hysterectomy Umbilical hernia repair Family History Significant Family History: no pertinent family hx Social History Alcohol Use: none Smoking Status: Never smoker Drug Use: none Exam/Review of Systems Vital Signs Vitals Vital Signs Date Time Temp Pulse Resp B/P Pulse Ox O2 Delivery O2 Flow Rate FiO2 09/11/17 12:00 73 09/11/17 11:28 98.2 18 123/75 95 Intake and Output 09/10/17 09/10/17 09/11/17 15:00 23:00 07:00 Intake Total 300 ml Balance 300 ml Exam Constitutional: alert, well developed Psych: nl mood/affect, no complaints Head: atraumatic, normocephalic Eyes: nl conjunctiva, nl lids ENMT: nl external ears & nose, nl nasal mucosa & septum Neck: non-tender, supple, No jvd Respiratory: clear to auscultation, normal air movement Cardiovascular: regular rate and rhythm, No murmurs/extra sounds Gastrointestinal: non-tender, soft Musculoskeletal: nl extremities to inspection Extremities: No clubbing, No cyanosis, No edema Neurological: nl mental status, nl speech Skin: nl turgor Results Result Diagram: 09/11/1771109/11/1712 Results 24 hrs Laboratory Tests Test 09/10/17 17:50 09/11/17 07:12 09/11/17 07:42 09/11/17 11:20 White Blood Count 5.7 5.2 Red Blood Count 4.58 4.18 L Hemoglobin 13.1 11.6 L Hematocrit 38.1 34.1 L Mean Corpuscular Volume 83.2 81.6 L Mean Corpuscular Hemoglobin 28.6 L 27.8 L Mean Corpuscular Hemoglobin Concent 34.4 34.0 Red Cell Distribution Width 14.7 H 14.8 H Platelet Count 192 173 Mean Platelet Volume 11.0 H 10.4 Neutrophils % 50.8 53.1 Lymphocytes % 40.2 36.5 Monocytes % 5.3 7.3 Eosinophils % 2.8 2.3 Basophils % 0.5 0.6 Nucleated Red Blood Cells % 0.0 0.0 Neutrophils # 2.9 2.8 Lymphocytes # 2.3 1.9 Monocytes # 0.3 0.4 Eosinophils # 0.2 0.1 Basophils # 0.0 0.0 Nucleated Red Blood Cells # 0.0 0.0 Sodium Level 144 142 Potassium Level 4.0 4.0 Chloride Level 103 106 Carbon Dioxide Level 28 28 Anion Gap 17 H 12 Blood Urea Nitrogen 9 13 Creatinine 0.65 0.67 Glucose Level 94 90 Calcium Level 9.6 9.2 Creatine Kinase 53 34 Creatine Kinase Index 0.5 0.6 Creatinine Kinase MB (Mass) 0.28 < 0.22 Troponin I < 0.012 < 0.012 Hemoglobin A1c 9.4 H Magnesium Level 1.5 L Total Bilirubin 0.5 Direct Bilirubin 0.00 Indirect Bilirubin 0.5 Aspartate Amino Transf (AST/SGOT) 65 H Alanine Aminotransferase (ALT/SGPT) 74 H Alkaline Phosphatase 57 Total Protein 7.3 Albumin 3.6 Globulin 3.70 H Albumin/Globulin Ratio 0.97 Triglycerides Level 146 Cholesterol Level 142 LDL Cholesterol, Calculated 65 HDL Cholesterol 48 Cholesterol/HDL Ratio 2.9 Thyroid Stimulating Hormone (TSH) 1.860 Bedside Glucose 97 140 Medications Medications Current Medications Lorazepam (Ativan) 0.5 mg Q8H PRN PO ANXIETY; Start 09/10/17 at 23:00 Ondansetron HCl (Zofran Inj) 4 mg Q6H PRN IV NAUSEA AND/OR VOMITING; Start at 23:00 Aspirin (Aspirin) 81 mg DAILY PO Last administered on 09/11/17t 08:05; Admin Dose 81 MG; Start 09/11/17 at 09:00 Nitroglycerin (Nitroglycerin (Sl Tab) 0.4 Mg) 1 tab Q5M PRN SL CHEST PAIN; Start 09/10/17 at 23:00 Acetaminophen (Tylenol Tab) 650 mg Q6H PRN PO PAIN LEVEL 1-3 OR FEVER; Start 09/10/17 at 23:00 Morphine Sulfate (morphine) 2 mg Q4H PRN IV PAIN LEVEL 7-10; Start 09/10/17 at 23:00 Enoxaparin Sodium (Lovenox) 40 mg DAILY SC Last administered on 09/11/17 08: 06; Admin Dose 40 MG; Start 09/11/17 at 09:00 Diagnostic Test (Pha) (Accu-Chek) 1 ea 02 XX ; Start 09/11/17 at 02:00 Insulin Glargine (Lantus) 12 unit DAILY@08 SC Last administered on 09/11/17 08:07; Admin Dose 12 UNIT; Start 09/11/17 at 08:00 Pantoprazole (Protonix Tab) 40 mg DAILY@06 PO Last administered on 09/11/17 06:30; Admin Dose 40 MG; Start 09/11/17 at 06:00 Miscellaneous Information 1 ea NOTE XX ; Start 09/10/17 at 23:30 Glucose (Glutose) 15 gm Q15M PRN PO DECREASED GLUCOSE; Start 09/10/17 at 23:30 Glucose (Glutose) 22.5 gm Q15M PRN PO DECREASED GLUCOSE; Start 09/10/17 at 23: 30 Dextrose (D50w Syringe) 25 ml Q15M PRN IV DECREASED GLUCOSE; Start 09/10/17 at 23:30 Dextrose (D50w Syringe) 50 ml Q15M PRN IV DECREASED GLUCOSE; Start 09/10/17 at 23:30 Glucagon (Glucagen) 1 mg Q15M PRN IM DECREASED GLUCOSE; Start 09/10/17 at 23: 30 Glucose 15 gm 15 gm Q15M PRN BUCCAL DECREASED GLUCOSE; Start 09/10/17 at 23:30 Magnesium Sulfate (Magnesium Sulfate 2 Gm/50 ml) 50 ml @ 25 mls/hr ONCE ONCE IVPB Last administered on 09/11/17 15:11; Admin Dose 25 MLS/HR; Start at 14:30; Stop 10/24/17 at 16:29 SIDNEY JACKSON MD Sep 11, 2017 16:06
[2017-09-12] VITALS (10 sets, daily range): BP systolic 101–122; BP diastolic 57–77; PULSE 58–67; RESP 17–20
[2017-09-12] MEDS: ACCU-CHEK XX SCH (02:00)
[2017-09-12] MEDS: PANTOPRAZOLE (EC) 40 MG TAB PO SCH (06:32)
[2017-09-12] MEDS: ASPIRIN 81 MG TAB PO SCH (08:22)
[2017-09-12] MEDS: INSULIN ASPART [NOVOLOG] 3 ML PEN SC SCH ×3 (08:24→17:36)
[2017-09-12] MEDS: INSULIN GLARGINE [LANtus] 3 ML PEN SC SCH (08:25)
[2017-09-12] MEDS ORDERED: LANT3I SC (10:03)
[2017-09-12] MEDS ORDERED: NOVO3I SC (10:03)
[2017-09-12] MEDS ORDERED: ASPI81TA3 PO (10:03)
--- NOTE | 2017-09-12 10:09 | PDOCDIS ---
Discharge Instructions DIAGNOSIS Discharge Diagnosis 1. Chest pain. 2. Diabetes. 3. Hypomagnesemia. CONDITION Patient Condition: Stable HOME CARE INSTRUCTIONS: Diet Instructions: Low Fat /CholesterolSpecial Diet: carb control FOLLOW UP/APPOINTMENTS Follow-up Plan 1. Follow up with your primary care provider in one week JORDON LEPE Sep 12, 2017 10:09
[2017-09-12 17:47] LABS: LYMPHOCYTE - % CD4 (HELPER) 13 % (30-61); LYMPHOCYTE - %CD8 (SUPPRESSOR) 49 % (12-42); LYMPHOCYTE - ABSOLUTE CD4 257 cells/uL (490-1740); LYMPHOCYTE - ABSOLUTE CD8 1003 cells/uL (180-1170); LYMPHOCYTE - CD4/CD8 RATIO 0.26 (0.86-5.00)
--- NOTE | 2017-09-12 17:57 | RADRPT ---
Echocardiogram Report Patient Name: DEO SILVA Gender: Female Date: 1955 Study Date: 12-Sep-2017 Wax Ball Molder: Cat [facility] Location: [id number] Ref. Physician: SIDNEY JACKSON Quality: Adequate Procedures: Transthoracic echocardiogram with complete 2D, M-Mode, and doppler examination. Indications: Chest Pain. 2D/M Mode Doppler Measurement Value Normal Ranges Measurement Value Normal Ranges LVIDd 2D 4.4 3.5 - 5.6 cm AV Peak Reilly 1.6 m/sec LVIDs 2D 2.7 2.1 - 4.1 cm AV Peak PG 11.0 mmHg FS 2D 39.1 % LVOT Peak Reilly 1.0 m/sec LVPWd 2D 1.1 0.6 - 1.1 cm LVOT Peak PG 4.0 mmHg IVSd 2D 1.0 0.6 - 1.1 cm MV E Peak Reilly 1.1 m/sec IVS/LVPW 2D 1.0 MV A Peak Reilly 1.3 m/sec AoR Diam 2D 2.8 2.0 - 3.7 cm MV E/A 0.9 LA/Ao 2D 1 0 - 1 MV Decel Time 275 msec EDV 2D 83.5 cm3 MV E/A 0.9 ESV 2D 18.8 cm3 TR Peak Reilly 2.2 m/sec LA Dimen 2D 3.3 2.3 - 4.0 cm TR Peak PG 19.0 mmHg RVSP 22.0 mmHg Findings Left Ventricle: Normal left ventricular systolic function. Normal left ventricular cavity size. Normal left ventricular wall thickness. Ejection fraction is visually estimated at 65 %. Tissue Doppler/Mitral Doppler indices are consistent with impaired relaxation (Stage I diastolic dysfunction). Right Ventricle: Normal right ventricular size. Normal right ventricular systolic function. Left Atrium: The left atrium is normal in size. Right Atrium: The right atrium is normal in size. Mitral Valve: Mild mitral leaflet calcification. Moderate mitral annular calcification. Trace mitral regurgitation. Aortic Valve: Normal appearance of the aortic valve. No significant aortic stenosis or insufficiency. Tricuspid Valve: Normal appearance of the tricuspid valve. Estimated peak PA systolic pressure 22 mmHg. There is trace tricuspid regurgitation. Pulmonic Valve: Normal pulmonic valve appearance. There is trace pulmonic regurgitation. Pericardium: Normal pericardium with no significant pericardial effusion. Aorta: Normal aortic root. IVC: Normal size and normal respiratory collapse consistent with normal right atrial pressure. Conclusions 1.The left ventricle is normal in size and systolic function. 2.Estimated left ventricular ejection fraction of 65%. 3.Grade 1 diastolic dysfunction. Electronically Signed By: Sidney Jackson 12-Sep-2017 17:57:25 -0700 Patient Name: DEO SILVA Study Date: 12-Sep-2017 [id number]
--- NOTE | 2017-09-12 18:48 | CONS ---
Date/Time of Note Date/Time of Note DATE: 09/12/17 TIME: 18:47 Assessment/Plan Assessment/Plan Chief Complaint/Hosp Course Assessment: Atypical chest pain - ruled out for myocardial infarction Insulin-dependent diabetes mellitus Hiatal hernia Reported history of hepatitis C Recommendations: -echocardiogram showed normal LVEF 65%, grade 1 diastolic dysfunction -no additional cardiac work up if normal Problems: Consultation Date/Type/Reason Admit Date/Time Sep 10, 2017 at 19:43 Initial Consult Date Type of Consultation: Cardiology 24 HR Interval Summary Free Text/Dictation No further chest pain. Detailed Summary Additional Comments 14 point review of systems without changes. Exam/Review of Systems Vital Signs Vitals Vital Signs Date Time Temp Pulse Resp B/P Pulse Ox O2 Delivery O2 Flow Rate FiO2 09/12/17 16:18 67 09/12/17 15:50 98.1 17 109/65 96 Intake and Output 09/11/17 09/11/17 09/12/17 15:00 23:00 07:00 Intake Total 1000 ml 300 ml Balance 1000 ml 300 ml Exam Constitutional: alert, well developed Psych: nl mood/affect, no complaints Head: atraumatic, normocephalic Eyes: nl conjunctiva, nl lids ENMT: nl external ears & nose, nl nasal mucosa & septum Neck: non-tender, supple, No jvd Respiratory: clear to auscultation, normal air movement Cardiovascular: regular rate and rhythm, No murmurs/extra sounds Gastrointestinal: non-tender, soft Musculoskeletal: nl extremities to inspection Extremities: No clubbing, No cyanosis, No edema Neurological: nl mental status, nl speech Skin: nl turgor Results Result Diagram: 09/11/1712 09/11/17 0712 Results 24 hrs Laboratory Tests Test 09/11/17 20:47 09/12/17 07:46 09/12/17 11:56 09/12/17 17:13 Bedside Glucose 119 151 265 H 196 Medications Medications Current Medications Lorazepam (Ativan) 0.5 mg Q8H PRN PO ANXIETY; Start 09/10/17 at 23:00 Ondansetron HCl (Zofran Inj) 4 mg Q6H PRN IV NAUSEA AND/OR VOMITING; Start at 23:00 Aspirin (Aspirin) 81 mg DAILY PO Last administered on 09/12/17t 08:22; Admin Dose 81 MG; Start 09/11/17 at 09:00 Nitroglycerin (Nitroglycerin (Sl Tab) 0.4 Mg) 1 tab Q5M PRN SL CHEST PAIN; Start 09/10/17 at 23:00 Acetaminophen (Tylenol Tab) 650 mg Q6H PRN PO PAIN LEVEL 1-3 OR FEVER Last administered on 09/11/17 16:23; Admin Dose 650 MG; Start 09/10/17 at 23:00 Morphine Sulfate (morphine) 2 mg Q4H PRN IV PAIN LEVEL 7-10; Start 09/10/17 at 23:00 Diagnostic Test (Pha) (Accu-Chek) 1 ea 02 XX ; Start 09/11/17 at 02:00 Insulin Glargine (Lantus) 12 unit DAILY@08 SC Last administered on 09/12/17 08:25; Admin Dose 12 UNIT; Start 09/11/17 at 08:00 Pantoprazole (Protonix Tab) 40 mg DAILY@06 PO Last administered on 09/12/17 06:32; Admin Dose 40 MG; Start 09/11/17 at 06:00 Miscellaneous Information 1 ea NOTE XX ; Start 09/10/17 at 23:30 Glucose (Glutose) 15 gm Q15M PRN PO DECREASED GLUCOSE; Start 09/10/17 at 23:30 Glucose (Glutose) 22.5 gm Q15M PRN PO DECREASED GLUCOSE; Start 09/10/17 at 23: 30 Dextrose (D50w Syringe) 25 ml Q15M PRN IV DECREASED GLUCOSE; Start 09/10/17 at 23:30 Dextrose (D50w Syringe) 50 ml Q15M PRN IV DECREASED GLUCOSE; Start 09/10/17 at 23:30 Glucagon (Glucagen) 1 mg Q15M PRN IM DECREASED GLUCOSE; Start 09/10/17 at 23: 30 Glucose (Glutose) 15 gm Q15M PRN BUCCAL DECREASED GLUCOSE; Start 09/10/17 at 23:30 SIDNEY JACKSON MD Sep 12, 2017 18:48
== END 2017-09-12 19:20 | disposition home or self-care (01) | DRG 313 ==
LOC: E/R 13:07 → MS4 19:43
PROVIDERS: ADMIT Internal Medicine; ATTEND Internal Medicine
DX: R07.89 Other chest pain (principal); B20 Human immunodeficiency virus [HIV] disease; E11.9 Type 2 diabetes mellitus without complications; B19.20 Unspecified viral hepatitis C without hepatic coma; R68.84 Jaw pain; R19.7 Diarrhea, unspecified; K29.70 Gastritis, unspecified, without bleeding; K21.9 Gastro-esophageal reflux disease without esophagitis; E83.42 Hypomagnesemia
CPT/HCPCS: 36415; 71010; 80048; 80053; 80061; 82550; 82553; 82962; 83036; 83735; 84443; 84484; 85025; 86360; 87536; 93005; 93306; J1650; J1815; J3475

== ENCOUNTER 2017-09-17 14:33 | Outpatient (CLI) | payer OTHER ==
[~2017-09-17] VITALS: Ht 165.1 cm; Wt 77.7 kg
[~2017-09-17 14:33] MED LIST changes: +ASPI81TA3 PO; -IMO2 PO; +LANT3I SC; -NITR25OR2 PO; +NOVO3I SC; -NPH SQ
[2017-09-17 15:00] VITALS: BP 140/73; PULSE 72; RESP 18; Ht 165.1 cm; Wt 77.7 kg
--- NOTE | 2017-09-17 15:34 | PN ---
Date/Time of Note Date/Time of Note DATE: 09/17/17 TIME: 15:28 Outpatient Progress Note Chief Complaint Chest pain/anxiety/hepatitis C/HIV/diabetes HPI Chest pain/patient has chest pain, patient was recently hospitalized, patient still has a pain, and pain in both arms, and precordially, no diaphoresis, nor increase in pain with activity, Anxiety/patient very anxious and nervous, Hepatitis C patient has hepatitis C, patient has not seen anybody, HIV/patient has HIV, patient is followed by physician, Diabetes/no polydipsia polyuria hypoglycemia, blood sugar control per patient, Review of Systems Const: No Fever, no chills, no Wt. loss, no Fatigue, normal appetite, no diaphoresis. Eyes: No pain, no discharge, no redness, no visual change, no foreign body. ENT: No pain, no bleeding, no congestion, no sore throat, no dysphagia, no discharge or rhinitis. Lymph: No adenopathy, no tender nodes, no lymphedema. Resp: No SOB, no cough, no sputum, no wheezing, no chest pain. CV: Mild chest pain, no palpitaions, no WYNN, no PND, no edema. GI: Normal appetite, no pain, no nausea, no vomiting, patient still has diarrhea , no blood, no constipation. : No frequency, no urgency, no dysuria, no hematuria, no flank pain, no discharge, no bleeding. Musc: Both arm pain,, no back pain, no neck pain, no knee pain, no restricted ROM. Skin: No rash, no skin lesions, no erythema, no laceration, no bruising, no pruritus. Neuro: No FREEDMAN, no dizziness, no syncope, no seizure, no focal-weakness. Endo: No polyuria, no polydypsia, no dry-skin, no temp-intolerance. Psych: No hallucinations, no depression, patient has anxiety, no suicidal ideation. Ext: No edema, no pain, no ulcer, no weakness. Physical Exam Vital Signs Date Time Temp Pulse Resp B/P Pulse Ox O2 Delivery O2 Flow Rate FiO2 09/17/17 15:00 98.2 72 18 140/73 97 Room Air General Appearance: A 62 year-old female who appears well-developed, well- nourished, in no acute distress. HEENT: Head normocephalic, atraumatic. Pupils equal, round, reactive to light and accommodate. Sclerae are no jaundice. Nasal turbinates pink without erythema or nasal discharge. Mucous membranes pink and moist without lesions. Oropharynx clear without any exudate or discharge. NECK: Supple. Trachea midline, No thyromegaly, No cervical lymphadenopathy, No mass, No carotid bruits, No JVD, Carotid pulses 2+ bilaterally. PULMONARY: Clear to auscultaion bilaterally, No retractions, Chest expansion symmetric bilaterally, no rales, no ronchi, no dulness on percussion. CARDIAC: Normal SI and S2, Regular rate and rythm, no murmur, gallop, or rub. GASTROINTESTINAL: Abdomen is soft, non-tender, Non Rigid, No distention, Positive bowel sounds x4 quadrants, Liver normal. SKIN: Warm, dry, no rash, no bruise, no echmosis. EXTREMITIES: Bilateral lower extremities no edema, no phlabitus, pulse palpable , no contracture. MUSCULOSKELETAL: Spine Normal, patient has tenderness er, Normal range of motion , both the shoulder, both arms, especially wrist, patient also has tenderness precordially, and it is exactly the same chest pain she is complaining, it is reproducible, with a local pressure, no swelling, no deformity, no clubbing, or cyanosis, the patient has no edema to bilateral lower extremities, dorsalis pedis pulses palpable bilaterally. NEUROLOGIC: The patient is awake, alert, oriented, responding to yes/no questions appropriately, moving all extremities, cranial nerve intact, normal strenght, normal power, normal coordination, normal gait. Allergies Coded Allergies: No Known Allergy (Unverified , 02/06/17) PMH Hepatitis C HIV/anxiety/diabetes/probably rheumatoid arthritis PUD/ section/hiatal hernia Social Hx No smoking no drinking, no drugs, Family Hx Noncontributory Assessment/Plan Impression Chest pain/musculoskeletal pain Anxiety Hep C HIV Diabetes Plan Patient chest pain is reproducible by palpating both wrist and shoulder, and also chest pain/precordial pain can be reproduced by pressing on the ribs, and muscles, patient examined in front of Romansh speaking staff, Discussed with the patient, it is reproducible chest pains are more likely it is not heart pain, patient also has ejection fraction of 65%, but discussed with the patient about diabetes and high risk for coronary artery disease, Patient advised to lose slight weight, Patient also encouraged to follow with GI for diarrhea, and also follow-up with the HIV and hep C doctor, Patient encouraged to follow with the primary care physician also, Medications Home Meds Active Scripts Insulin Aspart* (Novolog Insulin Pen*) 100 Unit/Ml Soln, 0 UNIT SC WITH MEALS BEDTIME, #30 Prov:REGIDORJENNIFERJORDON 09/12/17 Insulin Glargine* (Lantus*) 100 Unit/Ml Soln, 12 UNIT SC DAILY@08, #30 Prov:REGIDORJORDON 09/12/17 Aspirin (Aspirin) 81 Mg Chew, 81 MG PO DAILY, #30 TAB Prov:REGIDORJORDON 09/12/17 Tramadol HCl (Tramadol HCl) 50 Mg Tablet, 50 MG PO Q6 Y for PAIN, #12 TAB Prov:ALFREDA LITTLE MD 02/07/17 Reported Medications Omeprazole* (Omeprazole*) 20 Mg Capsule.dr, 20 MG PO DAILY, #30 CAP 08/21/17 Liraglutide (Victoza 2-Janes) 0.6 Mg/0.1 Ml Pen.injctr, 0.6 MG SQ DAILY, SYR 08/21/17 Calcium Citrate/Vitamin D (Citracal-Vitamin D 200 MG-250) 1 Each Tablet, 1 EACH PO BID, TAB 08/21/17 Discontinued Reported Medications Loperamide Hcl* (Loperamide Hcl*) 2 Mg Cap, 2 MG PO, CAP 08/21/17 Nitrofurantoin* (Furadantin* Susp) 25 Mg/5 Ml Oral.susp, 100 MG PO BID, ML 08/21/17 Insulin Human Nph (Novolin-N) 100 Units/Ml Susp, 0 SQ BID TAKE 38 UNITS QAM AND 25 UNITS QHS 02/06/17 CAM PRATER MD Sep 17, 2017 15:34
== END 2017-09-17 17:00 | disposition home or self-care (01) ==
LOC: DCC 14:33
PROVIDERS: ATTEND Internal Medicine
DX: E11.9 Type 2 diabetes mellitus without complications (principal); R07.9 Chest pain, unspecified; F41.9 Anxiety disorder, unspecified; B19.20 Unspecified viral hepatitis C without hepatic coma; Z79.84 Long term (current) use of oral hypoglycemic drugs; Z79.82 Long term (current) use of aspirin
CPT/HCPCS: G0463

== ENCOUNTER 2017-10-01 11:23 | Outpatient (CLI) | payer OTHER ==
[~2017-10-01] VITALS: Ht 165.1 cm; Wt 79.1 kg
[2017-10-01 11:30] VITALS: BP 140/73; PULSE 76; RESP 18; Ht 165.1 cm; Wt 79.1 kg
--- NOTE | 2017-10-01 12:20 | PN ---
Date/Time of Note Date/Time of Note DATE: 10/01/17 TIME: 12:13 Outpatient Progress Note Chief Complaint Diabetes/HIV/hep C/anxiety HPI Diabetes/no polydipsia polyuria, no hypoglycemia, patient blood sugar 202 today, HIV/no fever chill, Hepatitis C/no nausea or vomiting, Anxiety/patient anxious, nervous, no suicidal, Review of Systems Const: No Fever, no chills, no Wt. loss, no Fatigue, normal appetite, no diaphoresis. Eyes: No pain, no discharge, no redness, no visual change, no foreign body. ENT: No pain, no bleeding, no congestion, no sore throat, no dysphagia, no discharge or rhinitis. Lymph: No adenopathy, no tender nodes, no lymphedema. Resp: No SOB, no cough, no sputum, no wheezing, no chest pain. CV: No chest pain, no palpitaions, no WYNN, no PND, no edema. GI: Normal appetite, no pain, no nausea, no vomiting, no diarrhea, no blood, no constipation. Urology: Patient has mild frequency of urination, no urgency, no blood in the urine, no flank pain, no back pain, Musc: no back pain, no neck pain, no knee pain, no restricted ROM. Skin: No rash, no skin lesions, no erythema, no laceration, no bruising, no pruritus. Neuro: No FREEDMAN, no dizziness, no syncope, no seizure, no focal-weakness. Endo: No polyuria, no polydypsia, no dry-skin, no temp-intolerance. Psych: No hallucinations, no depression, no anxiety, no suicidal ideation. Ext: No edema, no pain, no ulcer, no weakness. Physical Exam General Appearance: A 62 year-old female who appears well-developed, well- nourished, in no acute distress. HEENT: Head normocephalic, atraumatic. Pupils equal, round, reactive to light and accommodate. Sclerae are no jaundice. Nasal turbinates pink without erythema or nasal discharge. Mucous membranes pink and moist without lesions. Oropharynx clear without any exudate or discharge. NECK: Supple. Trachea midline, No thyromegaly, No cervical lymphadenopathy, No mass, No carotid bruits, No JVD, Carotid pulses 2+ bilaterally. PULMONARY: Clear to auscultaion bilaterally, No retractions, Chest expansion symmetric bilaterally, no rales, no ronchi, no dulness on percussion. CARDIAC: Normal SI and S2, Regular rate and rythm, no murmur, gallop, or rub. GASTROINTESTINAL: Abdomen is soft, non-tender, Non Rigid, No distention, Positive bowel sounds x4 quadrants, Liver normal. SKIN: Warm, dry, no rash, no bruise, no echmosis. EXTREMITIES: Bilateral lower extremities normal, no edema, no phlabitus, pulse palpable, no contracture. MUSCULOSKELETAL: Spine Normal, Non-tender, Normal range of motion, No swelling, no deformity, no clubbing, or cyanosis, the patient has no edema to bilateral lower extremities, dorsalis pedis pulses palpable bilaterally. NEUROLOGIC: The patient is awake, alert, oriented, responding to yes/no questions appropriately, moving all extremities, cranial nerve intact, normal strenght, normal power, normal coordination, normal gait. Allergies Coded Allergies: No Known Allergy (Unverified , 02/06/17) PMH No change Social Hx No change Family Hx No change Assessment/Plan Impression Diabetes poorly controlled HIV Hepatitis C Anxiety Plan Patient had slight frequency urgency, and patient had UA and CBC CMP, patient had blood drawn this morning, Patient encouraged to follow with the primary care physician, Controlled diabetes control the weight control blood sugar and diabetic education done again, Discussed with the patient about her condition, blood tests will be sent to primary care physician, will be treated accordingly, Medications Home Meds Active Scripts Insulin Aspart* (Novolog Insulin Pen*) 100 Unit/Ml Soln, 0 UNIT SC WITH MEALS BEDTIME, #30 Prov:JORDON LEPE 09/12/17 Insulin Glargine* (Lantus*) 100 Unit/Ml Soln, 12 UNIT SC DAILY@08, #30 Prov:JORDON LEPE 09/12/17 Aspirin (Aspirin) 81 Mg Chew, 81 MG PO DAILY, #30 TAB Prov:JORDON LEPE 09/12/17 Tramadol HCl (Tramadol HCl) 50 Mg Tablet, 50 MG PO Q6 Y for PAIN, #12 TAB Prov:ALFREDA LITTLE MD 02/07/17 Reported Medications Omeprazole* (Omeprazole*) 20 Mg Capsule.dr, 20 MG PO DAILY, #30 CAP 10/3/17 Liraglutide (Victoza 2-Janes) 0.6 Mg/0.1 Ml Pen.injctr, 0.6 MG SQ DAILY, SYR 08/21/17 Calcium Citrate/Vitamin D (Citracal-Vitamin D 200 MG-250) 1 Each Tablet, 1 EACH PO BID, TAB 08/21/17 CAM PRATER MD Oct 01, 2017 12:20
== END 2017-10-01 17:00 | disposition home or self-care (01) ==
LOC: DCC 11:23
PROVIDERS: ATTEND Internal Medicine
DX: E11.9 Type 2 diabetes mellitus without complications (principal); B19.20 Unspecified viral hepatitis C without hepatic coma; F41.9 Anxiety disorder, unspecified; Z79.82 Long term (current) use of aspirin; Z79.4 Long term (current) use of insulin
CPT/HCPCS: G0463

== ENCOUNTER → 2018-11-26 | Outpatient (CLI) | payer OTHER ==
[~2018-11-26] MED LIST changes: +ASPI-831 PO; -ASPI81TA3 PO
--- NOTE | 2018-11-26 17:55 | HKNOTE ---
DATE OF SERVICE: 11/26/2018 CHIEF COMPLAINT: Bilateral knee pain. HISTORY OF PRESENT ILLNESS: The patient is a 63-year-old female complaining of chronic bilateral kne e pain. She denies any history of trauma. She denies any locking, catching, or instability. She do es not use any assistive devices. She does not take any pain medications. She has not had previous treatment. PAST MEDICAL HISTORY: None. PAST SURGICAL HISTORY: None. SOCIAL HISTORY: Denies tobacco or alcohol use. FAMILY HISTORY: None. ALLERGIES: NO KNOWN DRUG ALLERGIES. PHYSICAL EXAMINATION: GAIT: Nonantalgic gait, reciprocal gait pattern. RIGHT KNEE: Neutral alignment. Tender over the medial joint line, 0 to 120 degrees range of motion, stable to varus valgus stress. Negative Ivy, negative anterior drawer, negative posterior drawe r, negative Milo. LEFT KNEE: Valgus alignment. Tender over the medial joint line, 0 to 120 degrees range of motion, s table to varus/valgus stress. Negative Ivy, negative anterior drawer, negative posterior drawer. X-RAYS: RIGHT KNEE 3 VIEWS: There is patellofemoral joint space narrowing on weightbearing x-ray. There is medial joint space narrowing. No sclerosis. No peripheral osteophytes. LEFT KNEE 3 VIEWS: There is patellofemoral joint space narrowing on weightbearing x-ray. There is m edial joint space narrowing. No sclerosis. No peripheral osteophytes. IMPRESSION: A 63-year-old female with bilateral knee osteoarthritis. PLAN: She was instructed on weight loss and low-impact aerobic exercise. We will request authorizat ion for outpatient physical therapy. Should she continue to have pain in the future, we will request authorization for bilateral knee steroid injections. She will follow up in 3 months. Dictated By: SARIKA DURAND/GORGE Conf#: [id number] DID#: [id number]
--- NOTE | 2018-11-27 11:31 | RADRPT ---
PROCEDURE: XR knees CLINICAL INDICATION: Knee pain TECHNIQUE: Three views of the bilateral knees were obtained. COMPARISON: No prior exam FINDINGS: There is no acute fracture dislocation. Osseous structures are intact. There are mild degenerative ch anges of bilateral knees predominantly involving the medial and patellofemoral compartments. The bone mineralization is normal. Superior patellar enthesophytes are seen bilaterally. There is no knee rima nt effusion. IMPRESSION: 1. Mild degenerative changes of bilateral knees. No acute osseous abnormality. RPTAT: [facility] Physician Sharee Date Time Electronically viewed and signed by Physician Sharee on 11/27/2018 11:31 RF/
== END | disposition home or self-care (01) ==
LOC: HKI 15:14
PROVIDERS: ATTEND Orthopaedic Surgery Adult Reconstructive Orthopaedic Surgery
DX: M17.0 Bilateral primary osteoarthritis of knee (principal)
CPT/HCPCS: 73564; Z7500; G0463

== ENCOUNTER → 2019-01-23 | Outpatient (CLI) | payer OTHER ==
--- NOTE | 2019-01-23 15:17 | CONS ---
Consult Date/Type/Reason Admit Date/Time Initial Consult Date Date/Time of Note DATE: 01/23/19 TIME: 15:15 Subjective 63-year-old female following up today for bilateral knee steroid injection. She was previously seen by my partner Dr. Olivarez and is in my clinic today secondary to availability. Of note she does have insulin-dependent diabetes. She states her right knee is worse than her left knee. Denies any other changes. Denies numbness and tingling. Denies fevers and chills. Objective Exam General: Awake, alert, in no acute distress, pleasant and cooperative Heart: regular rhythm Lungs: breathing comfortably, no tachypnea or dyspnea MUSCULOSKELETAL: Bilateral lower extremities: Skin intact. Sensation intact to light touch in a sural, saphenous, deep peroneal, superficial peroneal, medial and lateral plantar nerve distribution. Motor is intact, patient able to dorsiflex and plantarflex ankle and extend and flex great toe. Dorsalis Pedis pulse +2, Brisk capillary refill. Compartments are soft. Calves non-tender to palpation bilaterally. Results/Medications Home Meds Active Scripts Insulin Aspart* (Novolog Insulin Pen*) 100 Unit/Ml Soln, 0 UNIT SC WITH MEALS BEDTIME, #30 Prov:REGJORDON REYNOLDS 09/12/17 Insulin Glargine* (Lantus*) 100 Unit/Ml Soln, 12 UNIT SC DAILY@08, #30 Prov:JORDON LEPE 09/12/17 Aspirin (Aspirin) 81 Mg Chew, 81 MG PO DAILY, #30 TAB Prov:JORDON LEPE 09/12/17 Tramadol HCl (Tramadol HCl) 50 Mg Tablet, 50 MG PO Q6 PRN for PAIN, #12 TAB Prov:ALFREDA LITTLE MD 02/07/17 Reported Medications Omeprazole* (Omeprazole*) 20 Mg Capsule., 20 MG PO DAILY, #30 CAP 08/21/17 Liraglutide (Victoza 2-Janes) 0.6 Mg/0.1 Ml Pen.injctr, 0.6 MG SQ DAILY, SYR 08/21/17 Calcium Citrate/Vitamin D (Citracal-Vitamin D 200 MG-250) 1 Each Tablet, 1 EACH PO BID, TAB 08/21/17 Assessment/Plan Hospital Course (Demo Recall) 63-year-old diabetic female presented to clinic for bilateral knee steroid injections. Patient was counseled that her blood glucose levels may be more elevated over the next few days to weeks secondary to bilateral knee steroid injections. She is going to watch her blood glucose carefully. If she is unable to keep it under control she will need to call her private care physician. She understood this. Plan: Bilateral knee steroid injection Ice Low impact activities Follow-up 12 weeks Assessment/Plan (Daily) Right and left knee steroid injection procedure: Risks and benefits of steroid injection reviewed with patient. The risks include infection, failure, pain, swelling, nerve/tendon/ligament damage. The patient ve rbalized understanding and verbal consent was obtained prior to procedure. The right and left knee was prepped in a sterile fashion with alcohol and betadine the site of injection was confirmed. Anteromedial approach was used. The skin and capsule was anesthetized with 3mL 1% lidocaine. The right and left knee were each injected with 2mL 1% lidocaine, 2mL 0.25% bupivacaine, 40mg Depo- Medrol. Injection flowed freely. Good hemostasis was achieved and no complications noted. The patient tolerated the procedure well. Limit activity and ice for 24-48 hours AUGUSTIN EID MD Jan 23, 2019 15:17
== END | disposition home or self-care (01) ==
LOC: HKI 14:03
PROVIDERS: ATTEND Orthopaedic Surgery Adult Reconstructive Orthopaedic Surgery
DX: M17.0 Bilateral primary osteoarthritis of knee (principal)
CPT/HCPCS: 20610; Z7500; Z7610; G0463